=== PATIENT | male | born 1935 | race Caucasian/White ===

== ENCOUNTER 2016-09-18 11:21 | Emergency (ER) | payer MEDICARE, OTHER ==
[2016-09-18] MEDS ORDERED: ASPIRIN 81 MG CHEW TAB ONE (11:27)
[2016-09-18] MEDS ORDERED: NITROGLYCERIN SL 0.4 MG TAB SL ONE (11:35)
== END 2016-09-18 15:26 | disposition home or self-care (01) ==
LOC: ER 11:21
DX: R07.89 Other chest pain (principal)
CPT/HCPCS: 36415; 71010; 80053; 82550; 83735; 84484; 85025; 85610; 85730; 93005